=== PATIENT | male | born 1985 | race Caucasian/White ===

== ENCOUNTER 2020-03-02 11:52 | Emergency (ER) | payer OTHER ==
[~2020-03-02] VITALS: Ht 193 cm; Wt 109.5 kg
[~2020-03-02 11:52] MED LIST: DIVA500T2
--- NOTE | 2020-03-02 12:48 | NUR ---
C/O CHEST PRESSURE, "I THOUGHT IT WAS RELATED TO ANXIETY". MONDAY EXPERIENCED DIFFICULTY BREATHING, REPORTS INTERMITTENT "WHEEZING" EXPERIENCE. HAS AN INHALER AND STEROID RX. USED INHALER THIS MORNING, STATES "I TRY NOT TO USE IT TOO MUCH". TOOK PREDISONE 40MG TODAY. ABLE TO SPEAK IN COMPLETE, RAPID SENTENCES. SKIN WNL. STATES HE LOOKED UP HIS SX ON INTERNET, FOCUSED ON PIG VALVE FAILURE. HX VALVE REPLACEMENT. DENIES MARIJUANA USE TODAY.
[2020-03-02] MEDS ORDERED: ALBU8.5H8 IH (12:57)
[2020-03-02] MEDS ORDERED: PRED20TA PO (12:57)
[2020-03-02] MEDS ORDERED: FLUT12AE2 INH (12:57)
--- NOTE | 2020-03-02 12:57 | NUR ---
CCXR DONE. LAB AT
[2020-03-02 13:10] LABS: MEAN CORPUSCULAR HEMOGLOBIN 29.8 pg (27.5-34.5); MEAN CORPUSCULAR HGB CONC 33.9 g/dL (33.2-36.2); MEAN PLATELET VOLUME 8.2 fL (7.4-10.4); PLATELET COUNT 199 x10^3/uL (130-400); RED BLOOD COUNT 5.18 x10^6/uL (4.38-5.82); RED CELL DISTRIBUTION WIDTH 13.5 % (9.4-14.8)
[2020-03-02 13:19] LABS: ALBUMIN 4.4 g/dL (3.4-5.0); ANION GAP 5 mmol/L (5-15); CALCIUM 9.1 mg/dL (8.5-10.1); CHLORIDE 110 mmol/L (98-107); CREATININE 0.84 mg/dL (0.7-1.3)
[2020-03-02 13:22] LABS: TROPONIN I < 0.015 ng/mL (0.000-0.045)
--- NOTE | 2020-03-02 13:27 | NUR ---
DR MONTEIRO AT [facility]
[2020-03-02 14:09] VITALS: BP 138/87
[2020-03-02 16:11] LABS: MD YES
[2020-03-02 16:14] LABS: BAND#(MANUAL) 0.13 x10^3/uL; BANDS%(MANUAL) 1 % (0-7); LYMPH#(MANUAL) 1.07 x10^3/uL (1-3.4); LYMPHS% (MANUAL) 8 % (22-44); MONOS#(MANUAL) 0.13 x10^3/uL (0.3-2.7); MONOS% (MANUAL) 1 % (2-9); SEG#(MANUAL) 12.06 x10^3/uL (1.8-6.8); SEGS% (MANUAL) 90 % (42-75)
[2020-03-02 16:15] LABS: <PLATELET ESTIMATE> ADEQUATE; <PLT MORPHOLOGY> NORMAL PLT MORPH; <RBC MORPHOLOGY> NORMAL
== END 2020-03-02 14:20 | disposition home or self-care (01) ==
LOC: ED 13:04
DX: J98.01 Acute bronchospasm (principal); R94.31 Abnormal electrocardiogram [ECG] [EKG]; Z87.891 Personal history of nicotine dependence; Z88.2 Allergy status to sulfonamides
CPT/HCPCS: 36415; 71045; 80048; 82040; 84484; 85025; 93005; 99285